=== PATIENT | female | born 1980 | race African-American/Black ===

== ENCOUNTER 2017-03-10 21:24 | Emergency (ER) | payer OTHER ==
[~2017-03-10] VITALS: Ht 170.2 cm; Wt 65.8 kg
[2017-03-10 21:39] LABS: URINE BILIRUBIN NEGATIVE (Negative); URINE BLOOD NEGATIVE (Negative); URINE COLOR YELLOW; URINE GLUCOSE-RANDOM* NEGATIVE (Negative); URINE KETONES NEGATIVE (Negative); URINE NITRITE NEGATIVE (Negative); URINE PROTEIN (DIPSTICK) TRACE (Negative); URINE SPECIFIC GRAVITY 1.015 (1.003-1.035)
[2017-03-10] MEDS ORDERED: ZOFRAN ODT4 MG PO (21:49)
[2017-03-10] MEDS ORDERED: PHENERGAN 25 MG25 M1 PO (21:49)
[2017-03-10] MEDS ORDERED: PROTONIX40 MG PO (21:49)
[2017-03-10] MEDS ORDERED: PROMS25 WY RECTAL (21:49)
[2017-03-10 22:03] LABS: ABSOLUTE NEUTROPHILS 1.6 thou/uL (1.4-8.2); BASOPHILS 0.7 % (0.0-2.0); EOSINOPHILS 1.3 % (0.0-3.0); HEMATOCRIT 32.4 % (37.0-47.0); HEMOGLOBIN 10.8 gm/dL (12.0-15.0); LYMPHOCYTES 46.5 % (24.0-44.0); MCH 28.2 pg (26.0-34.0); MCHC 33.3 g/dL (28.0-37.0); MCV 84.7 fL (80.0-100.0); MONOCYTES 10.2 % (1.0-8.0); PLATELET COUNT 158 thou/uL (150-400); POLYS 41.3 % (36.0-66.0); RBC 3.83 mil/uL (4.20-5.00); WBC 3.9 thou/uL (4.0-11.0)
[2017-03-10 22:11] LABS: MANUAL DIFF NO
[2017-03-10 22:18] LABS: CALCIUM 8.6 mg/dL (8.5-10.1); CREATININE 0.9 mg/dL (0.6-1.0); POTASSIUM 3.3 mmol/L (3.5-5.1)
[2017-03-10 22:25] LABS: ALBUMIN 3.7 g/dL (3.4-5.0); DIRECT BILIRUBIN 0.1 mg/dL (<0.1-0.3); TOTAL BILIRUBIN 0.3 mg/dL (<0.1-1.0); TOTAL PROTEIN 7.1 g/dL (6.4-8.2)
[2017-03-10 23:14] VITALS: BP 135/75
== END 2017-03-10 23:15 | disposition home or self-care (01) ==
LOC: ER 21:24
PROVIDERS: Emergency Medicine
DX: R10.9 Unspecified abdominal pain (principal); R19.7 Diarrhea, unspecified; R11.2 Nausea with vomiting, unspecified; E87.6 Hypokalemia; K21.9 Gastro-esophageal reflux disease without esophagitis

== ENCOUNTER 2019-04-23 09:08 | Emergency (ER) | payer OTHER ==
[~2019-04-23] VITALS: Ht 162.6 cm; Wt 68.0 kg
[~2019-04-23 09:08] MED LIST: PHENERGAN 25 MG25 M1 PO; PROMS25 WY RECTAL; PROTONIX40 MG PO; ZOFRAN ODT4 MG PO
[2019-04-23] MEDS ORDERED: HUMULIN N100 UNIT/1 SUBQ (09:20)
[2019-04-23] MEDS ORDERED: NOVOLOG MI100 UNIT/M SUBQ (09:21)
[2019-04-23 10:00] LABS: HEMATOCRIT 34.8 % (37.0-47.0); HEMOGLOBIN 11.2 gm/dL (12.0-15.0); MCH 28.1 pg (26.0-34.0); MCHC 32.2 g/dL (28.0-37.0); MCV 87.1 fL (80.0-100.0); PLATELET COUNT 158 thou/uL (150-400); RBC 3.99 mil/uL (4.20-5.00); RDW 12.9 % (10.5-14.5)
[2019-04-23 10:05] LABS: ANION GAP 8 mmol/L (7-16); BUN 7 mg/dL (7-18); CALCIUM 7.6 mg/dL (8.5-10.1); CHLORIDE 107 mmol/L (98-107); CO2 24 mmol/L (21-32); CREATININE 0.7 mg/dL (0.6-1.0); GLUCOSE 203 mg/dL (74-106); POTASSIUM 3.5 mmol/L (3.5-5.1); SODIUM 139 mmol/L (136-145)
[2019-04-23 10:14] LABS: TROPONIN-I <0.06 ng/mL (<0.06)
[2019-04-23 10:26] LABS: URINE BILIRUBIN NEGATIVE (Negative); URINE BLOOD TRACE (Negative); URINE CLARITY CLEAR; URINE COLOR YELLOW; URINE GLUCOSE-RANDOM* 1+ (Negative); URINE KETONES NEGATIVE (Negative); URINE LEUKOCYTES-REFLEX NEGATIVE (Negative); URINE NITRITE-REFLEX NEGATIVE (Negative); URINE PROTEIN (DIPSTICK) NEGATIVE (Negative)
[2019-04-23 10:33] LABS: ABSOLUTE NEUTROPHILS 0.7 thou/uL (1.4-8.2); PLATELET ESTIMATE NORMAL
[2019-04-23 11:30] VITALS: BP 118/78
--- NOTE | 2019-04-25 13:26 | EKG ---
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
== END 2019-04-23 11:30 | disposition home or self-care (01) ==
LOC: ER 09:08
PROVIDERS: Emergency Medicine
DX: B34.9 Viral infection, unspecified (principal); E11.9 Type 2 diabetes mellitus without complications; Z79.4 Long term (current) use of insulin

== ENCOUNTER 2019-06-06 07:57 | Emergency (ER) | payer OTHER ==
[~2019-06-06] VITALS: Ht 162.6 cm; Wt 70.3 kg
[~2019-06-06 07:57] MED LIST changes: +HUMULIN N100 UNIT/1 SUBQ; +NOVOLOG MI100 UNIT/M SUBQ
[2019-06-06 08:22] LABS: HEMATOCRIT 40.5 % (37.0-47.0); MCV 87.5 fL (80.0-100.0); RBC 4.63 mil/uL (4.20-5.00); RDW 13.3 % (10.5-14.5); WBC 6.6 thou/uL (4.0-11.0)
[2019-06-06 08:34] LABS: CALCIUM 9.4 mg/dL (8.5-10.1); CREATININE 0.9 mg/dL (0.6-1.0); POTASSIUM 3.9 mmol/L (3.5-5.1)
[2019-06-06 08:39] LABS: ALBUMIN 3.6 g/dL (3.4-5.0); TOTAL BILIRUBIN 0.3 mg/dL (<0.1-1.0); TOTAL PROTEIN 7.5 g/dL (6.4-8.2)
[2019-06-06 08:42] LABS: ABSOLUTE NEUTROPHILS 2.8 thou/uL (1.4-8.2); ATYPICAL LYMPHS 1 %; PLATELET COUNT 200 thou/uL (150-400); PLATELET ESTIMATE NORMAL
[2019-06-06 12:02] LABS: URINE BILIRUBIN NEGATIVE (Negative); URINE BLOOD NEGATIVE (Negative); URINE CLARITY CLEAR; URINE COLOR YELLOW; URINE GLUCOSE-RANDOM* NEGATIVE (Negative); URINE KETONES NEGATIVE (Negative); URINE LEUKOCYTES-REFLEX NEGATIVE (Negative); URINE NITRITE-REFLEX NEGATIVE (Negative); URINE PROTEIN (DIPSTICK) NEGATIVE (Negative); URINE UROBILINOGEN 0.2 E.U./dl (0.2-1.0)
--- NOTE | 2019-06-06 12:30 | EKG ---
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
[2019-06-06 13:02] VITALS: BP 113/72
== END 2019-06-06 13:12 | disposition home or self-care (01) ==
LOC: ER 07:57
PROVIDERS: Emergency Medicine
DX: E11.649 Type 2 diabetes mellitus with hypoglycemia without coma (principal); R42 Dizziness and giddiness; K21.9 Gastro-esophageal reflux disease without esophagitis